=== PATIENT | female | born 1960 | race Caucasian/White ===

== ENCOUNTER → 2021-05-14 14:30 | Outpatient (BNVA) | payer OTHER, SELFPAY | PROVIDERS: PCP Internal Medicine; Visit Provider Internal Medicine Pulmonary Disease ==

== ENCOUNTER → 2021-05-20 07:44 | Outpatient (REF) | payer OTHER, SELFPAY ==
--- NOTE | 2021-05-20 07:55 | CA_ITS ---
INDICATIONS; POST COVID 19 CONDITION, USPECIFIED WITH CONTRAST. 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 6.2 E Lat. 9.79 AV CUSPS TRILEAFLET: DOPPLER MEASUREMENTS: AORTIC PP mmHg MPG 15 mmHg VELOCITY: 267 VALVE AREA: 1.95 cm^2 TRISUCPS: PP mmHg VELOCITY: 223 m/s RA Vol. 13 IVC 1.23 LA VOL. 19.9 RVS 10.1 MTDD
--- NOTE | 2021-05-20 07:55 | CA_ITS ---
Transthoracic Echocardiogram Patient (Last, First, Middle): Nathalie Claros A Gender: Female Date of : 1960 Age: 60 Procedure Date: 05/20/2021 Procedure Type: Transthoracic Echocardiogram Location: OP Height: 165.1 cm Weight: 138.35 kg BSA: 2.37 m2 Heart Rate: bpm BP: 120 / 80 mmHg Seamer Elastic Band: NATALIA Mujica MD: Antony Law MD Business Services Representative: Joel Ortiz MD Symptoms: U09.9 - Post COVID-19 condition, unspecified Study Quality: Fair ECG Rhythm: Sinus Conclusions: - 1. Normal LV systolic function with impaired relaxation filling pattern 2. Mild aortic stenosis 3. Normal RV systolic pressure 4. Trivial pericardial effusion Findings Left Ventricle Normal left ventricular size, thickness, and systolic function. The visually estimated ejection fraction is between 60-65%. Spectral Doppler is indicative of an impaired relaxation filling pattern. E/E prime ratio is between 8 and 15 consistent with indeterminate filling pressures. Right Ventricle Normal right ventricular cavity size and systolic function. Atria Both atria are normal in size. Interatrial shunt cannot be excluded. Aortic Valve There is mild calcification of the aortic valve. There is mild aortic valve stenosis. The peak aortic gradient is 29 mmHg.The mean gradient is 15 mmHg. The aortic valve area is 1.95 cm2. There is no aortic valve regurgitation. Mitral Valve There is mild anterior and posterior mitral leaflet thickening. There is trace mitral valve regurgitation. There is no mitral valve stenosis. Pulmonic Valve The pulmonic valve was not well visualized. Tricuspid Valve Likely normal tricuspid valve structure and function. There is mild tricuspid valve regurgitation. The right ventricular systolic pressure is normal. The right ventricular systolic pressure is 23 mmHg. Normal right atrial pressure. There is no evidence of pulmonary hypertension. Great Vessels All visible segments of the aorta are normal in size. The pulmonary artery was not well visualized. Venous The inferior vena cava is normal in size and collapses greater than 50% with inspiration. Pericardium/Pleural There is a trivial loculated pericardial effusion overlying the left ventricle. Prior Study Comparison No prior study available for comparison. Measurements 2D Linear Measurements IVSd: 1.07 0.6-0.9/0.6-1.0 cm LVIDd: 4.66 3.9-5.3/4.2-5.9 cm LVIDd Index: 1.97 2.4-3.2/2.2-3.1 cm/m2 LVIDs: 2.94 2.0-3.6 cm LVPWd: 0.95 0.7-1.1 cm Ao Root: 3.10 2.1-3.5 cm LA Diam: 3.40 2.7-3.8/3.0-4.0 cm LAIDs Index: 1.43 1.5-2.3 cm/m2 LV Mass: 204.48 67-162/88-224 g LV Mass Index: 86.28 43-95/49-115 g/m2 LVOT Diam: 2.00 3.0+(-)1.3 cm 2D Systolic Function EF 4C: 61.60 >55% EF 2C: 65.70 >55% EF BiP: 64.70 >55% Mitral Valve MV Pk E: 1.00 MV PK A: 1.15 MV Decel Time: 259.00 E/A: 0.90 E'Lateral: 9.79 E'Medial: 6.20 E/E' Med: 16.10 E/E' Lat: 10.20 PHT: 76.00 MVA PHT: 2.89 Decel Gallia: 3.86 Aortic Valve AoV Pk Martell: 2.67 AoV Mn Martell: 1.79 AoV VTI: 0.55 AoV Pk Grad: 29.00 Aov Mn Grad: 15.00 RENETTA Cont.VTI: 1.95 LVOT LVOT Pk Martell: 1.51 LVOT Mn Martell: 1.14 LVOT VTI: 0.34 LVOT Pk Grad: 9.00 LVOT Mn Grad: 6.00 LVOT Diam: 2.00 LVOT Area: 3.14 Diastolic Function MV Pk E: 1.00 MV Pk A: 1.15 E/A: 0.90 E'Medial: 6.20 E/E' Med: 16.10 E' Laterial: 9.79 E/E' Lat: 10.20 Right Ventricle TAPSE (mm): 2.33 Tricuspid Valve TR Pk Martell: 2.23 TR Pk Grad: 20.00 RA Press: 3.00 RVSP: 23.00 Great Vessels Aorta Ao Root-2D: 3.10 2.0-3.7 cm Ao Asc: 2.70 2.1-3.4 cm Ao Arch: 2.80 Updated in Other Vendor System with Status of Final Joel Ortiz MD electronically signed on 05/26/2021 3:29:14 PM with status of Final
== END ==
LOC: HO.CARD 07:44
PROVIDERS: PCP Nurse Practitioner Primary Care; Visit Provider Internal Medicine Pulmonary Disease
DX: U09.9 Post COVID-19 condition, unspecified (principal)
CPT/HCPCS: 93306; Q9957

== ENCOUNTER 2021-05-24 08:04 | Outpatient (REF) | payer OTHER, SELFPAY ==
--- NOTE | 2021-05-24 17:09 | PFT_ITS ---
INDICATION: Postcovid syndrome. SPIROMETRY: FEV1 to FVC of 86% with an FEV1 of 2.5 L, which is 96% predicted and an FVC of 2.92 L, which is 86% predicted. No significant response to bronchodilators noted. Maximum voluntary ventilation 100% predicted. LUNG VOLUMES: Total lung capacity 92% predicted. Expiratory reserve volume of 14% predicted. DIFFUSION CAPACITY: DLCO 69% predicted. It does correct to 84% when correcting for the alveolar volume. COMPARISONS: None. INTERPRETATION: No obstructive nor restrictive ventilatory defects identified. No significant response to bronchodilators noted. Normal maximum voluntary ventilation. Lung volumes with decrease in the expiratory reserve volume secondary to an elevated BMI. There is some mild diffusion impairment that does correct to normal when correcting for the alveolar volume. Clinical correlation warranted. Saeed Canseco MD MR/MODL / [id number]
== END 2021-05-24 08:05 | disposition home or self-care (01) ==
LOC: HO.RESP 08:04
PROVIDERS: PCP Nurse Practitioner Primary Care; Visit Provider Internal Medicine Pulmonary Disease
DX: U09.9 Post COVID-19 condition, unspecified (principal)
CPT/HCPCS: 94060; 94727; 94729

== ENCOUNTER → 2021-06-16 09:44 | Outpatient (BNVA) | payer OTHER, SELFPAY | PROVIDERS: PCP Nurse Practitioner Primary Care; Visit Provider Internal Medicine Pulmonary Disease | DX: R06.00 Dyspnea, unspecified (principal); U09.9 Post COVID-19 condition, unspecified ==

== ENCOUNTER → 2021-07-16 09:35 | Outpatient (BNVA) | payer OTHER, SELFPAY | PROVIDERS: PCP Nurse Practitioner Primary Care; Visit Provider Internal Medicine Pulmonary Disease | DX: R06.00 Dyspnea, unspecified (principal); U09.9 Post COVID-19 condition, unspecified ==

== ENCOUNTER → 2021-08-25 09:17 | Outpatient (BNVA) | payer OTHER, SELFPAY | PROVIDERS: PCP Nurse Practitioner Primary Care; Visit Provider Internal Medicine Pulmonary Disease | DX: R06.00 Dyspnea, unspecified (principal); U09.9 Post COVID-19 condition, unspecified ==

== ENCOUNTER → 2021-11-19 09:42 | Outpatient (BNVA) | payer OTHER, SELFPAY | PROVIDERS: PCP Nurse Practitioner Primary Care; Visit Provider Internal Medicine Pulmonary Disease | DX: R06.00 Dyspnea, unspecified (principal); U09.9 Post COVID-19 condition, unspecified ==

== ENCOUNTER → 2022-11-10 09:29 | Outpatient (BNVA) | payer OTHER, SELFPAY | PROVIDERS: PCP Nurse Practitioner Primary Care; Visit Provider Internal Medicine Pulmonary Disease ==

== ENCOUNTER 2023-11-03 09:22 | Outpatient (AMB) | payer OTHER, SELFPAY ==
[2023-11-03 09:50] VITALS: BP 124/60; PULSE 77; O2SAT 99; BMI 46.6
--- NOTE | 2023-11-03 09:50 | MHC.OFFVIS ---
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 She denies any recent exacerbations.? Her CT chest showed only small amount of residual fibrosis; and pulmonary function test was essentially normal.? [facility] Medical History (Updated 02/24/22 @ 10:33 by Antony Law MD) Supplemental oxygen dependent Social History (Updated 11/03/23 @ 09:54 by Lupe Torres Jerry) Patient Tobacco Use Status: Never used Tobacco Review of Systems Const Denies daytime sleepiness, Denies excessive sweating, Denies fatigue, Denies fever(s), Denies lethargy, Denies malaise, Denies night sweats, Denies snoring and Denies weight loss Eyes Denies blurry vision and Denies itchy eyes ENT Denies nasal congestion, Denies post nasal drip, Denies sinus pain, Denies sinus pressure and Denies other ( Thrush) Card Denies chest pain, Denies pedal edema, Denies dyspnea, Denies orthopnea and Denies paroxysmal nocturnal dyspnea Resp Denies cough, Denies hemoptysis, Denies excessive phlegm production, Denies dyspnea, Denies snoring and Denies wheezing GI Denies abdominal pain and Denies heartburn Musc Denies myalgias, Denies arthralgias and Denies joint swelling Skin/Breast Denies rash Neuro Denies memory loss and Denies seizure-like activity Psych Denies abnormal sleep pattern, Denies anxiety and Denies memory loss Endo Denies excessive sweating, Denies fatigue and Denies heat intolerance Silas/Lymph Denies easy bruising Aller/Immun Denies itchy eyes, Denies seasonal rhinorrhea and Denies wheezing Physical Exam Vital Signs: Last Vital Signs Pulse 77 05/03/24 09:50 BP 124/60 11/03/23 09:50 Pulse Ox 99 11/03/23 09:50 Oxygen Delivery Method Room Air 11/03/23 09:50 BMI result Body Mass Index 46.6 Const General: no acute distress and alert Nutritional Appearance: obese Orientation/consciousness: Other orientation findings ( oriented) HEENT Head: Yes atraumatic Eyes General: appearance normal, both eyes and all related structures Sclerae: sclerae normal EOM: EOMs intact bilaterally Neck Neck: Yes supple Lymphatic: no lymphadenopathy noted Resp Effort & Inspection: normal respiratory effort and no use of accessory muscles Auscultation: clear to auscultation bilaterally Cardio Rate: regular rate Rhythm: regular rhythm Heart sounds: no gallops, no murmurs and no rubs Skin General skin exam: other ( warm) Extrem General: No clubbing, No cyanosis and No edema Assessment & Plan Assessment & Plan (1) Post-COVID syndrome: Code(s): U09.9 - Post COVID-19 condition, unspecified Category: Medical Plan: Now essentially resolved. Imaging studies only with minimal fibrosis. Continue to monitor clinically. (2) ALISTAIR (obstructive sleep apnea): Code(s): G47.33 - Obstructive sleep apnea (adult) (pediatric) Category: Medical Plan: Underlying obstructive sleep apnea with remote sleep study over 15 years prior. Patient with significant changes in weight requiring a new sleep study. Coding Level of Care Code Est Pt Level 4 (62573) Diagnoses Post-COVID syndrome U09.9 ALISTAIR (obstructive sleep apnea) G47.33
== END 2023-11-03 10:02 | disposition home or self-care (01) ==
PROVIDERS: PCP Nurse Practitioner Primary Care; Visit Provider Internal Medicine Pulmonary Disease
DX: U09.9 Post COVID-19 condition, unspecified (principal); G47.33 Obstructive sleep apnea (adult) (pediatric)
CPT/HCPCS: 99214

== ENCOUNTER → 2023-11-03 09:22 | Outpatient (BNVA) | payer OTHER, SELFPAY | PROVIDERS: PCP Nurse Practitioner Primary Care; Visit Provider Internal Medicine Pulmonary Disease ==